=== PATIENT | male | born 1975 | race Caucasian/White ===

== ENCOUNTER 2024-12-01 03:22 | Emergency (ER) | payer MEDICAID, SELFPAY ==
[2024-12-01 03:23] VITALS: BMI 31.7
--- NOTE | 2024-12-01 03:25 | EKG_ITS ---
[facility] (Formerly [facility]) Test Date: 2024-12-01 Pat Name: JUWAN DEL VALLE Department: Room: - Gender: Male [employer]: : [id number] Requested By: ED Temporary Provider Order Number: [id number] Reading MD: ED Temporary Provider Measurements Intervals [place] Rate: 65 P: 63 DE: 183 QRS: -40 QRSD: 100 T: 55 QT: 453 QTc: 472 Interpretive Statements SINUS RHYTHM LEFT AXIS DEVIATION [QRS AXIS < -30] PROLONGED QT INTERVAL Compared to ECG 09/26/2021 15:32:51 Prolonged QT interval now present /[id number].pdf
[2024-12-01 03:29] VITALS: BP 158/113; BP 160/111; PULSE 68; RESP 19; TEMP 36.4; O2SAT 99
--- NOTE | 2024-12-01 03:37 | XR_ITS ---
EXAMINATION: PA chest single view TECHNIQUE: 1. Upright PA chest single view Date and time: December 01, 2024, 0035 hours INDICATIONS: Chest pain nausea beginning 4 hours ago. FINDINGS: Normal heart size Osseous structures are intact No pneumonia or pulmonary edema IMPRESSION: No active disease
--- NOTE | 2024-12-01 03:38 | PD.EDRME ---
Rapid Medical Screening Exam RME Arrival date/time: 12/01/24 03:22 This is a case of 49-year-old male who came in in the emergency room due to chest pain shortness of breath and palpitation today persistence of the symptoms this patient decided to start consult here in the emergency room Chief Complaint: Chest Pain Vital signs: Vital Signs Temperature 97.6 F 12/01/24 03:29 Pulse Rate 68 12/01/24 03:29 Respiratory Rate 19 12/01/24 03:29 Blood Pressure 160/111 H 12/01/24 03:29 Pulse Oximetry (%) 99 12/01/24 03:29 Oxygen Delivery Method Room Air 12/01/24 03:29 Exam: N RRR clear breath sounds Clinical Impression: Chest pain
[2024-12-01 04:13] LABS: Basophils # (Auto) 0.1 Thou/mm3 (0.0-0.2); Basophils % (Auto) 1 % (0-2.5); Eosinophils # (Auto) 0.9 Thou/mm3 (0.0-0.5); Eosinophils % (Auto) 6 % (0-10); Hematocrit 40.1 % (41.0-53.0); Hemoglobin 13.7 g/dL (13.5-16.0); Immature Granulocytes Auto 0.04 Thou/mm3 (0.00-0.00); Lymphocytes # (Auto) 2.4 Thou/mm3 (1.0-4.8); Lymphocytes % (Auto) 17 % (10-50); Mean Corpuscular HGB Conc 34.2 g/dl (31.0-37.0); Mean Corpuscular Hemoglobin 30.4 pg (25.0-35.0); Mean Corpuscular Volume 89 fL (80-100); Monocytes # (Auto) 0.9 Thou/mm3 (0.0-0.8); Monocytes % (Auto) 6 % (0-12); Neutrophils # (Auto) 9.8 Thou/mm3 (1.8-7.7); Neutrophils % (Auto) 70 % (37-80); Nucleated Red Blood Cell # 0.00 Thou/mm3 (0.00-0.00); Nucleated Red Blood Cell % 0 /100 WBC (0); Platelet Count 255 Thou/mm3 (140-440); RDW Standard Deviation 42.9 fL (35.1-43.9); Red Blood Count 4.50 Miln/mm3 (4.50-5.90); White Blood Count 14.1 Thou/mm3 (3.8-10.6)
[2024-12-01 04:26] LABS: B-Type Natriuretic Peptide < 20 pg/mL (0-100); Sodium 141 mMol/L (136-145)
[2024-12-01 04:27] LABS: Alanine Aminotransferase 17 U/L (10-49); Albumin, Serum 4.9 gm/dL (3.5-5.0); Albumin/Globulin Ratio 2.2 (1.2-2.2); Alkaline Phosphatase 93 U/L (46-116); Anion Gap 9 (7-16); Aspartate Amino Transferase 20 U/L (0-34); BUN/Creatinine Ratio 11 Ratio (12-20); Bilirubin,Total 0.3 mg/dL (0.3-1.2); Blood Urea Nitrogen 13 mg/dL (9-23); Calcium 9.3 mg/dL (8.3-10.6); Calcium (Corrected) 9.3 mg/dL (8.5-10.1); Carbon Dioxide 25.3 mMol/L (20.0-31.0); Chloride 107 mMol/L (98-107); Creatinine (Component) 1.2 mg/dL (0.6-1.3); D-Dimer < 250 ng/mL (<600); Estimated Creatinine Clearance 93.8 mL/min (>60); Globulin 2.2 gm/dL (2.3-3.5); Glucose 134 mg/dL (74-106); Osmolality,Calculated 283 (275-295); Potassium 3.8 mMol/L (3.4-5.1); Total Protein 7.1 gm/dL (5.7-8.2); Troponin I < 0.002 ng/mL (0.0-0.045); eGFR > 60 See Note
--- NOTE | 2024-12-01 05:29 | PC.NURSE ---
PATIENT INFORMED OF NEED FOR URINE SAMPLE, WILL TRY TO PROVIDE ONE AT THIS TIME.
[2024-12-01 06:07] VITALS: BP 124/80; PULSE 71; RESP 19; TEMP 36.6; O2SAT 97
[2024-12-01 07:21] VITALS: BP 128/86; PULSE 71; RESP 18; TEMP 36.4; O2SAT 98
--- NOTE | 2024-12-01 07:30 | PC.NURSE ---
SAFETY NET [employer]ER SAW PT GET IN A CAR AND LEAVE; PT ELOPED. NO DISCHARGE GIVEN.
== END 2024-12-01 07:30 | disposition left against medical advice (07) ==
PROVIDERS: Nurse Practitioner Family; Emergency Provider Emergency Medicine
DX: Z53.21 Procedure and treatment not carried out due to patient leaving prior to being seen by health care provider (principal)
CPT/HCPCS: 36415; 71045; 80053; 81001; 83880; 84484; 85025; 85379; 93005; 99282